=== PATIENT | female | born 1950 | race Caucasian/White ===

== ENCOUNTER 2020-03-27 13:41 | Outpatient (CLI) | payer MEDICARE, SELFPAY ==
--- NOTE | 2020-03-31 13:03 | WPDPFTINT ---
PFT Interpretation PFT Interpretation: This PFT met all criteria for ATS standards and reproducibility FEV/FVC post bronchodilator 50% FEV1 73% or 1.33 liters FVC 103% or 2.63 liters Unfortunately bronchodilator challenge was not given TLC 133% or 5.62 liters RV 180% RV/TLC 53% DLCO 45% when adjusted for alveolar volume but not adjusted for hemoglobin Flow volume loops showed Impression: This PFT is limited due to lack to bronchodilator challenge given. There is moderate airflow obstruction with hyper inflation and air trapping as well as moderately reduced diffusion capacity. This pattern can be seen in COPD but concomitant Asthma can not be ruled out. Clinical correlation is advised.
== END 2020-03-27 13:42 | disposition home or self-care (01) ==
LOC: ANHPFT 13:45
PROVIDERS: PCP Internal Medicine; Visit Provider Internal Medicine
DX: J44.9 Chronic obstructive pulmonary disease, unspecified (principal); R94.2 Abnormal results of pulmonary function studies
CPT/HCPCS: 94375; 94726; 94729

== ENCOUNTER 2021-06-24 18:05 | Inpatient (IN) | payer MEDICARE, SELFPAY ==
--- NOTE | ~2021-06-24 | CT_ITS ---
EXAMINATION:CT chest high resolution wo mi DATE: 06/25/2021 12:00 INDICATION: Pulmonary nodule. TECHNIQUE: Computed tomography (CT) of the chest was performed without intravenous contrast. Automate d exposure control and iterative reconstruction technique were employed. The dose-length product (DLP ) was 149.06 mGy-cm. COMPARISON: Chest single view 06/24/2021 FINDINGS: There is severe emphysema. There is mild scarring at the lung apices. There are scattered a reas of mucous plugging in the lungs with a lower lung predominance. There is a 5 mm nodule in right upper lobe, likely benign. A calcified right lung nodule and calcified right hilar and mediastinal ly mph nodes are consistent with old granulomatous disease. There is mild atelectasis bilaterally. No pl eural effusion. The heart size is normal. No pericardial effusion. Calcifications in the spleen are c onsistent with old granulomatous disease. There is severe cervical spondylosis and mild thoracic spon dylosis. IMPRESSION: 1. No specific evidence of malignancy. 2. Severe emphysema. Reviewed, dictated and finalized at location A. THERAPIST
--- NOTE | ~2021-06-24 | NM_ITS ---
EXAMINATION: NM pulmonary perfusion DATE: 06/25/2021 14:07 INDICATION: Respiratory abnormality with cough and elevated d-dimer. TECHNIQUE: 5.5 mCi Tc-99m MAA by intravenous route. Scintigraphic images of the chest were obtained. COMPARISON: Chest CT dated 06/25/2021 FINDINGS: Moderate-sized wedge-shaped perfusion defects are seen in the right middle lobe and in the anterior b asilar segment of the right lower lobe. There is corresponding severe bullous emphysema in the right middle lobe. There are perfusion defects corresponding to regions of severe emphysema at the anteroap ical bilateral upper lobes. IMPRESSION: 1. Intermediate probability for pulmonary embolism. Reviewed, dictated and finalized at location B. RIAL LISTER
--- NOTE | ~2021-06-24 | US_ITS ---
EXAMINATION: US venous doppler [facility] DATE: 06/25/2021 12:13 INDICATION: Respiratory abnormality with COPD, cough and pulmonary infiltrates. TECHNIQUE: Grayscale ultrasound images without and with compression and Doppler ultrasound images of the bilateral lower extremity veins were obtained. COMPARISON: None. FINDINGS: The visualized portions of right common femoral vein, profunda (deep) femoral vein, femoral vein, pop liteal vein, posterior tibial veins, peroneal veins, gastrocnemius vein and greater saphenous vein ou tflow are patent. The visualized portions of left common femoral vein, profunda femoral vein, femoral vein, popliteal v ein, posterior tibial veins, peroneal veins, gastrocnemius vein and greater saphenous vein outflow ar e patent. IMPRESSION: 1. No deep venous thrombosis in either lower limb. Reviewed, dictated and finalized at location B. TRUCTION FOREMAN
--- NOTE | ~2021-06-24 | XR_ITS ---
XR chest 1V portable DATE: 06/24/2021 23:53 INDICATION: Cough. History of COPD. Smoker. TECHNIQUE: Portable upright AP chest on 06/24/2021 at 2349 hours COMPARISON: None FINDINGS: Normal heart size. Mild aortic arch calcification. No hilar or mediastinal enlargement is e vident. Bilateral hyperinflation, consistent with COPD. Approximately 11 mm ill-defined opacity overlying right mid and lower lung; lung mass is not excluded . Mild infiltrate or atelectasis is suggested in the right lower lung. The lungs otherwise appear clear . No pleural effusion or pulmonary vascular congestion or pneumothorax. Diffuse osteopenia. IMPRESSION: 11 mm nodular density overlying right mid to lower lung and mild right lower lung infiltr ate and/atelectasis. CT thorax with IV contrast material is recommended COPD Osteopenia Reviewed, dictated and finalized at location A. S EMBOSSER IMPRESSION: 11 mm nodular density overlying right mid to lower lung and mild ri ght lower lung infiltrate and/atelectasis. CT thorax with IV contrast material is recommended COPD Osteopenia
[2021-06-24 18:13] VITALS: BP 129/68; PULSE 109; RESP 28; TEMP 36.9; O2SAT 93
[2021-06-24 18:16] VITALS: O2SAT 98
[2021-06-24 22:28] VITALS: BP 123/48; PULSE 86; O2SAT 97
--- NOTE | 2021-06-24 23:26 | ECG_ITS ---
Measurements Intervals [place] Rate: 84 P: 80 CO: 148 QRS: 14 QRSD: 82 T: 84 QT: 360 QTc: 427 Interpretive Statements SINUS RHYTHM DELAYED PRECORDIAL R/S TRANSITION BORDERLINE T WAVE ABNORMALITY- ANTEROLAT/HIGH LAT LEADS BASELINE ARTIFACT- I, II, III, AVR, AVL, AVF, V3-V6 BORDERLINE ECG Electronically Signed On 06-25-2021 6:26:13 EXPLOSIVE OPERATOR SUPERVISOR by Capo Jimenez D.O.
--- NOTE | 2021-06-24 23:30 | ED.SOB ---
HPI - SOB/Dyspnea General Chief Complaint: Shortness of Breath/Dyspnea Stated Complaint: SOB X WEEKS,HX COPD Time Seen by Provider: 06/24/21 23:16 Source: patient Mode of arrival: ambulatory Limitations: no limitations History of Present Illness HPI Narrative: Patient is a 70-year-old female complaining of shortness of breath accompanied by chest congestion and cough, productive, yellowish sputum, since April but worse this past week. Patient states that she has a history of COPD, continues to smoke. Patient denies any chest pain, abdominal pain, nausea, vomiting, diaphoresis, fever or chills. Related Data Allergies Allergy/AdvReac Type Severity Reaction Status Date / Time erythromycin base AdvReac Swelling Verified 06/24/21 23:41 of Lip/Tongue/Throat Review of Systems Review of Systems: All systems reviewed & are unremarkable except as noted in HPI and below Constitutional: Constitutional: Denies body ache(s), Denies chills, Denies excessive sweating, Denies fatigue, Denies fever(s), Denies headache(s), Denies lethargy, Denies malaise, Denies weakness and Denies weight loss Eyes: Eyes: Denies blurry vision, Denies change in vision and Denies loss of vision ENT: Denies dizziness, Denies ear discharge, Denies headache(s), Denies lip swelling, Denies epistaxis, Denies nasal congestion, Denies neck pain, Denies throat swelling and Denies tongue swelling Cardiovascular: Cardiovascular: Denies chest pain, Denies chest pain at rest, Denies chest pain with activity, Denies diaphoresis, Denies rapid heart rate, Denies edema, Denies irregular heart rhythm, Denies lightheadedness, Denies palpitations, Denies dyspnea and Denies dyspnea on exertion Gastrointestinal: Gastrointestinal: Denies abdominal pain, Denies melena, Denies hematochezia, Denies diarrhea, Denies nausea, Denies vomiting and Denies hematemesis Musculoskeletal: Musculoskeletal: Denies abnormal gait, Denies deformity, Denies joint swelling, Denies limited range of motion, Denies neck pain and Denies numbness Neurologic: Denies Abnormal speech present, Denies abnormal gait, Denies confusion, Denies dizziness, Denies headache(s), Denies focal weakness, Denies loss of vision, Denies numbness, Denies Other visual disturbances, Denies Sensory deficit (Neuro) and Denies weakness Psychiatric: Psychiatric: Denies confusion, Denies depression, Denies auditory hallucinations, Denies homicidal ideation and Denies suicidal ideation Endocrine: Endocrine: Denies cold intolerance, Denies excessive sweating, Denies fatigue, Denies heat intolerance and Denies palpitations Hematologic/Lymphatic: Hematologic/Lymphatic: Denies easy bleeding and Denies easy bruising Allergic/Immunologic: Allergic/Immunologic: Denies lip swelling, Denies throat swelling and Denies tongue swelling PMFSH Comments Past medical history: COPD, hypertension Family history: Hypertension Social history: Positive for smoker, no EtOH or drug use Exam Const: General: cooperative, comfortable, well developed, alert and awake; No confusion Nutritional Appearance: thin Orientation/consciousness: oriented to person, oriented to place, oriented to time, patient oriented x3 and No confusion Limitations: no limitations Other: Mild distress HENMT: Head: normal to inspection, normocephalic and atraumatic Ears: hearing grossly normal bilaterally, TM normal on the right and TM normal on the left General nose exam: Normal external nose present, Normal nares present and No nasal discharge present Face and sinus: normal facial exam Mouth: Yes Normal oral and palatal mucosa present, Yes lip normal, Yes tongue normal and Yes oropharynx normal Throat: posterior oropharynx normal, tonsils normal and uvula midline Eyes: General: appearance normal, both eyes and all related structures Pupils: Equal, round and reactive pupils present EOM: EOMs intact bilaterally Neck: Neck: normal visual inspection, full ROM, no lymphaden
[2021-06-24] MEDS: IPRATROPIUM BR 0.02% INH SOLN 0.5 MG/2.5 ML VIAL INHALATION (23:41)
[2021-06-24] MEDS: ALBUTEROL SULFATE NEB 2.5 MG/0.5 ML INH 5 MG INHALATION (23:41)
[2021-06-24] MEDS: methylPREDNISolone SOD SUCC 125 MG VIAL IV PUSH (23:41)
[2021-06-24 23:44] VITALS: BP 90/78; PULSE 89; RESP 16; O2SAT 100; O2SAT 98
[2021-06-24 23:52] VITALS: PULSE 97; RESP 18
[2021-06-24 23:56] LABS: Alveolar/Arterial O2 Gradient 92.4 mmHg; Base Excess ABG -0.2 mEq/l (+/-2.0); Carboxyhemoglobin 1.4 % THb (0-2.0); Fractional Inspired Oxygen 32 %; HCO3 ABG 24.1 mEq/l (22.0-26.0); Methemoglobin ABG 0.1 %THb (0-1.5); Oxygen Content ABG 20.3 %vol (16.0-22.0); Oxygen Saturation ABG 97.1 % (95.0-100.0); Oxyhemoglobin 95.4 % THb (90.0-100.0); PCO2 ABG 38.5 mmHg (35.0-45.0); PO2 ABG 90.7 mmHg (80.0-100.0); PO2 FiO2 Ratio Arterial Blood 2.83 %; Reduced Hemoglobin 3.1 %THb (0-5.0); Total Hemoglobin 15.1 g/dL (12.0-18.0); pH ABG 7.414 (7.350-7.450)
[2021-06-24 23:59] LABS: Device NASAL CANNULA; Modified Allen's Test Pass; Site Drawn LEFT RADIAL
[2021-06-25] VITALS (12 sets, daily range): BP systolic 134–178; BP diastolic 57–99; PULSE 77–102; RESP 16–26; TEMP 36–37.1; O2SAT 94–98; BMI 23.6
[2021-06-25 00:50] LABS: Mean Corpuscular HGB Conc 32.6 g/dl (32-36); Mean Corpuscular Hemoglobin 29.6 pg (26-34); Mean Corpuscular Volume 90.7 fl (80-100); Mean Platelet Volume 10.5 fl (7.4-10.4); Platelet Count Result 296 k/mm3 (150-375); Red Blood Count 5.07 M/mm3 (4.2-5.4); Red Cell Distribution Width 13.6 % (11.5-14.5); White Blood Count 24.4 K/mm3 (4.5-10.0)
[2021-06-25 01:01] LABS: Anion Gap 11 mmol/L (8-16); Blood Urea Nitrogen 12 mg/dL (7-17); Calcium 9.8 mg/dL (8.4-10.2); Carbon Dioxide 26 mmol/L (22-30); Chloride 100 mmol/L (98-107); Estimated CRCL calculation 40 ml/min; Estimated Glomerular Filt Rate > 60; Glucose 210 mg/dL (65-110); Potassium 4.6 mmol/L (3.4-5.0); Sodium 137 mmol/L (137-145)
[2021-06-25 01:13] LABS: NT Pro B Type Natriuretic Pept 485 pg/mL (5-100); Troponin I < 0.012 ng/mL (0.000-0.034)
[2021-06-25 01:46] LABS: Band Neutrophils Percent 7 % (0-6); Lymphocytes Absolute Manual 0.97 K/mm3 (1.1-4.5); Monocytes Absolute Manual 0.24 K/mm3 (0.1-0.90); Monocytes Percent Manual 1 % (3-9); Neutrophils Absolute Manual 23.18 K/mm3 (1.7-7.2); Neutrophils Percent Manual 88 % (46-73); Platelet Estimate Adequate (Adequate); Total Cells Counted 100
--- NOTE | 2021-06-25 02:19 | PM.IMHP ---
H&P: HPI History of Present Illness Date/Time: 06/25/21 02:19 Chief Complaint: Shortness of breath Narrative: This is a 70-year-old female with past medical history significant for COPD/emphysema. Patient presents to the emergency room with complaints of shortness of breath persistent cough productive of greenish sputum, chills ,fevers, poor appetite, having to add pillows at nighttime to be able to sleep due to shortness of breath when laying flat and bouts of cough. Has been using her inhaler more often than usual and has been taking Tylenol for body aches and pains and fevers, night sweats. Although patient states that she is current with her shots and has not been feeling well for the last couple of months. Patient denies any nausea, any vomiting, any abdominal pain ,any diarrhea, any leg swelling, any calf pain. Preliminary workup was significant for chest X rate with infiltrates, a COVID rapid test was negative. Patient was placed on 3 L of supplemental oxygen by nasal cannula in emergency room after her pulse ox was 87% on room air. Patient is being admitted for further evaluation, management and treatment. Review of Systems Review of Systems: Shortness of breath cough sputum production fever chills rigors poor appetite Constitutional: Constitutional: Reports chills, Reports fatigue, Reports fever(s), Reports lethargy, Reports malaise, Reports night sweats, Reports poor appetite and Reports weakness Eyes: Eyes: Denies change in vision ENT: Denies dysphagia, Reports nasal congestion, Reports nasal discharge, Reports nasal obstruction and Denies odynophagia Cardiovascular: Cardiovascular: Denies pedal edema, Denies edema, Denies irregular heart rhythm, Denies leg edema, Denies lightheadedness, Denies radiating jaw, neck or arm pain, Denies palpitations, Denies dyspnea, Denies dyspnea on exertion and Denies orthopnea Respiratory: Respiratory: Reports change in phlegm color, Reports cough, Reports excessive phlegm production and Reports dyspnea Gastrointestinal: Gastrointestinal: Denies abdominal pain, Denies dyspepsia, Denies heartburn, Denies diarrhea, Denies nausea and Denies vomiting Genitourinary: Genitourinary: Denies dysuria Musculoskeletal: Musculoskeletal: Denies arthralgias and Denies joint swelling Integumentary/Breasts: Skin/Breast: Denies rash Neurologic: Denies focal weakness and Denies Sensory deficit (Neuro) Psychiatric: Psychiatric: Reports no additional psychiatric complaints and Reports as per HPI Endocrine: Endocrine: Denies cold intolerance, Denies heat intolerance, Denies polydipsia and Denies palpitations Hematologic/Lymphatic: Hematologic/Lymphatic: Reports no additional hematologic/lymphatic complaints and Reports as per HPI Allergic/Immunologic: Allergic/Immunologic: Reports no additional allergic/immunologic complaints and Reports as per HPI Meds Home Medications and Allergies Allergies Allergy/AdvReac Type Severity Reaction Status Date / Time erythromycin base AdvReac Swelling Verified 06/24/21 23:41 of Lip/Tongue/Throat Vital Signs Vital Signs - 24 hr 06/24/21 18:13 06/24/21 18:16 06/24/21 22:28 Temperature 98.5 F Pulse Rate 109 H 86 Respiratory Rate 28 H Blood Pressure 129/68 123/48 L Pulse Oximetry 93 98 97 06/24/21 23:44 06/24/21 23:52 06/25/21 00:03 Temperature Pulse Rate 89 97 89 Respiratory Rate 16 18 Blood Pressure 90/78 L Pulse Oximetry 100 Exam Narrative: Patient is laying in gurney Const: General: cooperative, comfortable, no acute distress, well developed, alert, awake, acute distress mild and ill appearing acutely Nutritional Appearance: thin Orientation/consciousness: patient oriented x3 HENMT: Head: normal to inspection, normocephalic and atraumatic Ears: hearing grossly normal bilaterally General nose exam: Normal external nose present Face and sinus: normal facial exam Eyes: General: appearance normal, both eyes and al
[2021-06-25] MEDS: DOXYCYCLINE HYCLATE 100 MG TABLET PO (02:24)
[2021-06-25] MEDS: SODIUM CHLORIDE 0.9% IV 1,000 ML 125 ML IV CONT (02:28)
[2021-06-25 03:29] LABS: EDCOVIDSCREEN Negative (Negative)
--- NOTE | 2021-06-25 05:55 | ADMGEN ---
This patient, Diane Quesada, was admitted to Medical Room 251-01. Patient/family oriented to hospital policies and general routines including ID bracelet, bed and alarms, visiting hours, pain management, procedures, bathroom and other care routines, personal items, smoking policy, room service/diet, and visiting hours. Information on how to activate the Rapid Response Team has been discussed. Patient/Family are encouraged to report perceived risks to care and to ask questions if they do not understand what they are told or what they should do.
[2021-06-25] MEDS: methylPREDNISolone SOD SUCC 40 MG VIAL IV PUSH (06:31)
[2021-06-25] MEDS: IPRATROPIUM BR 0.02% INH SOLN 0.5 MG/2.5 ML VIAL INHALATION ×2 (09:04→15:56)
[2021-06-25] MEDS: ALBUTEROL SULFATE NEB 2.5 MG/0.5 ML INH 5 MG INHALATION (09:04)
[2021-06-25 10:01] LABS: INR 1.1; Prothrombin Time 13.9 Seconds (11.1-14.7)
[2021-06-25 10:01] LABS: Influenza Control Positive
[2021-06-25 10:04] LABS: D Dimer 1.63 ug/mL (<0.48)
[2021-06-25] MEDS: SODIUM CHLORIDE 0.9% IV 1,000 ML 70 ML IV CONT (10:49)
[2021-06-25] MEDS: ENALAPRIL MALEATE 10 MG TABLET 20 MG PO (10:49)
--- NOTE | 2021-06-25 12:33 | PM.CNPUL ---
Assessment and Plan Assessment and plan (1) Acute exacerbation of chronic obstructive airways disease: Code(s): J44.1 - Chronic obstructive pulmonary disease with (acute) exacerbation Status: Acute Assessment and Plan: Patient with a history of tobacco use, obstructive abnormality on her PFTs and severe panlobular emphysema on her CT scan all consistent with COPD. Currently patient has shortness of breath, change in her cough and phlegm production and hypoxia consistent with a COPD exacerbation. Her CT scan shows no evidence of pneumonia. She has a positive D-dimer and we will obtain lower extremity Dopplers and a perfusion scan. She did tell me she lost her taste and smell approximately 2 weeks ago and this has improved. She has COVID rapid antigen negative and I will send an RT PCR study. Her influenza swab is negative. She had an ABG of 7.41/39/91 on 3 L nasal cannula and a serum bicarbonate of 26 so there is no evidence of chronic hypercarbic respiratory failure. At this time I will change her Solu-Medrol to 20 mg IV q.6 hours, continue albuterol and ipratropium nebulizers Q 4 standing. Agree with continuation of ceftriaxone and Levaquin while we are waiting her blood cultures to return. Continue supplemental oxygen to maintain saturations 90-94%. Discussed with Delaney Martinez and will follow with you. History of Present Illness History of Present Illness Consult date: 06/25/21 Reason for consult: COPD Chief complaint: Pneumonia, COPD Exacerbation Narrative: 06/25/2021: This is a new pulmonary consult for COPD, pneumonia and lung nodule. 70-year-old woman with a history of COPD, quit smoking 10 days ago, peripheral arterial disease or DVT per her report requiring a catheter procedure 5 years ago prevents to the hospital on 06/24/2021 with worsening shortness of breath. Patient tells me that her shortness of breath initially started in April of 2021 and she continued to get worse and was admitted to [facility] about 2 weeks ago. Patient felt she was not adequately treated and signed out AMA. She was given prednisone and took the prednisone and did have some benefit. Recently the patient states her symptoms have been getting worse since she left that hospital over the last few weeks with shortness of breath, nighttime fevers, chills, worsening cough and phlegm that has changed to a clear -yellow color. Patient presented to the emergency room and Had a white blood cell count of 24.4K, she had a COVID antigen rapid test that was negative, she has had an influenza swab that is negative. She was empirically started on Doxycycline and then switched to ceftriaxone and Levaquin for possible community-acquired pneumonia. She was placed on Solu-Medrol 40 mg IV Q 8, albuterol and ipratropium nebulizers q.6 For COPD exacerbation. she had a high-resolution CT scan that shows severe panlobular emphysema, 5 mm nodule right upper lobe likely benign, and no evidence of focal pneumonia, effusions or consolidations. Patient's D-dimer is positive and a perfusion scan has been ordered. Patient started smoking cigarettes at age 22 and quit 10 days ago. She smoked 1 pack per day for 48 pack years. Patient denies vaping, illicit drug use, sandblasting, welding, asbestos were, professional painting or steel rolling mill operator helper. Patient worked in an office setting. Patient was exposed to secondhand smoke from both parents but is exposed to no secondhand smoke at this time. Patient received Parker 2 COVID vaccines but no booster. Patient had her influenza vaccine last fall. 06/25 The patient tells me she is essentially unchanged since yesterday. Patient is on 2 L nasal cannula saturations 96%. DATA: This is a pulmonary function test with spirometry, plethysmography and diffusing capacity. Findings: Spirometry: there is decreased maximal expiratory airflow at all lung volumes with concave expiratory
--- NOTE | 2021-06-25 13:21 | PM.IMPN ---
Progress Note: A&P Assessment and Plan (1) Sepsis: Code(s): A41.9 - Sepsis, unspecified organism Status: Acute Assessment and Plan: Patient meets criteria for sepsis with tachycardia, tachypnea, hypoxia, leukocytosis with elevated neutrophils and bands, in the setting of bacterial pneumonia versus COVID which we ruled out versus COPD exacerbation Blood cultures were taken and pending Sputum cultures ordered but have not been received IV antibiotics with azithromycin and Rocephin for community-acquired pneumonia #1 Today patient has been afebrile, non tachycardic, normal respiratory rate, but still 96% on 2 L via nasal cannula Continue monitoring vitals. (2) Acute respiratory failure with hypoxemia: Code(s): J96.01 - Acute respiratory failure with hypoxia Status: Acute Assessment and Plan: Patient found to be hypoxic on arrival and requiring 2 L of oxygen at this time. Believe it is in the setting bacterial pneumonia versus COVID versus COPD exacerbation. Continue with IV antibiotics DuoNeb treatments q.6 She was placed on IV Solu-Medrol 40 mg Q8h which pulmonary can decide to discontinue versus slowly taper but she does not currently have any wheezing on examination Ordered Josie valve and incentive spirometer Patient also had an elevated D-dimer so we will order a pulmonary perfusion scan to see if we can rule out acute PE since the patient says she has a history of possible DVT CT scan without contrast was ordered to further evaluate lungs and possible 11 mm nodule that was noted. CT chest showed no specific evidence of malignancy, severe emphysema, and scattered areas of mucous plugging in the lungs with a lower lung predominance. Currently patient is 96% on 2 L via nasal cannula Pulmonology was consulted and appreciate the recommendations Continue monitoring. (3) Community acquired pneumonia: Qualifiers: Laterality: unspecified laterality Qualified Code(s): J18.9 - Pneumonia, unspecified organism Code(s): J18.9 - Pneumonia, unspecified organism Status: Acute Assessment and Plan: Patient we treated for community-acquired pneumonia with IV Rocephin and Levaquin #1 given her allergies to erythromycin antibiotics. Continue monitoring leukocytosis for improvement of infection Continue IV antibiotics Continue monitoring. Appreciate pulmonology is input. (4) COPD (chronic obstructive pulmonary disease): Code(s): J44.9 - Chronic obstructive pulmonary disease, unspecified Status: Acute Assessment and Plan: Patient has a history of COPD and is a smoker. Currently she is not have any wheezing that is auscultated. She has been started on IV Solu-Medrol 40 mg every 8 hours by the emergency room and DuoNeb treatments every 6 hours with albuterol and ipratropium. Appreciate pulmonology is input and recommendations on treatment Continue monitoring. (5) Elevated glucose: Code(s): R73.09 - Other abnormal glucose Status: Acute Assessment and Plan: Glucose was 210 when she came into the emergency room. Will order hemoglobin a 1 C for further evaluation. She is not on any medications for diabetes. (6) Hypertension: Code(s): I10 - Essential (primary) hypertension Status: Acute Assessment and Plan: Blood pressure this morning was 165/99. Will continue the patient's enalapril and make adjustments if needed. Time Spent With Patient Time with patient: 25 - 35 minutes Subjective Date/time seen: 06/25/21 13:21 Interval history: Date of service 06/25/2021: Patient does not report any improvement since being admitted overnight. She con
[2021-06-25] MEDS: ARTIFICIAL TEARS OPHTH SOLN 15 ML BOTTLE 1 DROP EACH EYE ×3 (14:12→21:00)
[2021-06-25] MEDS: ALBUTEROL SULFATE NEB 2.5 MG/0.5 ML INH INHALATION (15:56)
[2021-06-25] MEDS: methylPREDNISolone SOD SUCC 40 MG VIAL 20 MG IV PUSH (17:29)
--- NOTE | 2021-06-25 20:30 | PC.NURSE ---
Pt daughter Rocio called and requested information related to her mother. Explained that I needed to get permission from the pt in order to release any information. Rocio became upset and stated that she was the only daughter and was allowed to have information. I explained that I needed to speak with patient first that I was not giving information with out speaking with patient. I then went to speak with Diane (patient) with [facility] RN and asked if she wished to have information given to her daughter Rocio. Diane stated no that she wanted information and she would give her daughter information. Diane spoke with her daughter and told her that she did not want information released. Rocio then called nurses station and was informed that we could not release information.
[2021-06-25 20:55] LABS: SARS-CoV-2 RNA PCR Negative
[2021-06-25] MEDS: SIMVASTATIN 10 MG TABLET PO (20:59)
[2021-06-25] MEDS: guaiFENesin 600 MG/DEXTROMETHORPHAN 30 MG SR TAB 12 HR 1 TAB PO (21:00)
[2021-06-25] MEDS: ENALAPRIL MALEATE 10 MG TABLET PO (21:00)
[2021-06-25] MEDS: VENLAFAXINE HCL XR 75 MG CAP.ER.24H 150 MG PO (21:00)
[2021-06-25] MEDS: ALPRAZolam (*CRX) 0.25 MG TABLET PO (21:00)
--- NOTE | 2021-06-25 23:07 | PCRCNOTE ---
Window of time for administration has passed. See next scheduled administration.
[2021-06-26] VITALS (9 sets, daily range): BP systolic 131–154; BP diastolic 57–65; PULSE 79–96; RESP 18–22; TEMP 35.8–36.3; O2SAT 90–95
[2021-06-26] MEDS: methylPREDNISolone SOD SUCC 40 MG VIAL 20 MG IV PUSH ×5 (00:25→23:50)
[2021-06-26] MEDS: IPRATROPIUM BR 0.02% INH SOLN 0.5 MG/2.5 ML VIAL INHALATION ×5 (00:55→19:35)
[2021-06-26] MEDS: ALBUTEROL SULFATE NEB 2.5 MG/0.5 ML INH INHALATION ×5 (00:55→19:35)
[2021-06-26 05:42] LABS: Hemoglobin 12.8 g/dL (12.0-15.0); Mean Corpuscular Volume 90.7 fl (80-100); Platelet Count Result 268 k/mm3 (150-375); Red Blood Count 4.41 M/mm3 (4.2-5.4); Red Cell Distribution Width 13.5 % (11.5-14.5); White Blood Count 20.2 K/mm3 (4.5-10.0)
[2021-06-26 06:02] LABS: Anion Gap 9 mmol/L (8-16); Blood Urea Nitrogen 22 mg/dL (7-17); Calcium 8.9 mg/dL (8.4-10.2); Carbon Dioxide 22 mmol/L (22-30); Chloride 106 mmol/L (98-107); Estimated CRCL calculation 40 ml/min; Estimated Glomerular Filt Rate > 60; Glucose 159 mg/dL (65-110); Potassium 4.2 mmol/L (3.4-5.0); Sodium 137 mmol/L (137-145)
[2021-06-26 07:23] LABS: Band Neutrophils Percent 5 % (0-6); Monocytes Percent Manual 3 % (3-9); Neutrophils Absolute Manual 19.39 K/mm3 (1.7-7.2); Neutrophils Percent Manual 91 % (46-73); Platelet Estimate Adequate (Adequate); Total Cells Counted 100
--- NOTE | 2021-06-26 07:26 | PCRCNOTE ---
Window of time for administration has passed. See next scheduled administration.
[2021-06-26] MEDS: guaiFENesin 600 MG/DEXTROMETHORPHAN 30 MG SR TAB 12 HR 1 TAB PO ×2 (08:54→21:20)
[2021-06-26] MEDS: ENALAPRIL MALEATE 10 MG TABLET 20 MG PO (08:55)
[2021-06-26] MEDS: ARTIFICIAL TEARS OPHTH SOLN 15 ML BOTTLE 1 DROP EACH EYE ×4 (08:56→21:18)
[2021-06-26 09:22] LABS: Hemoglobin A1C 6.6 % (<5.7)
--- NOTE | 2021-06-26 10:40 | PM.PNPUL ---
Progress Note: A&P Assessment and Plan (1) Acute exacerbation of chronic obstructive airways disease: Code(s): J44.1 - Chronic obstructive pulmonary disease with (acute) exacerbation Status: Acute Assessment and Plan: 06/25 Patient with a history of tobacco use, obstructive abnormality on her PFTs and severe panlobular emphysema on her CT scan all consistent with COPD. Currently patient has shortness of breath, change in her cough and phlegm production and hypoxia consistent with a COPD exacerbation. Her CT scan shows no evidence of pneumonia. She has a positive D-dimer and we will obtain lower extremity Dopplers and a perfusion scan. She did tell me she lost her taste and smell approximately 2 weeks ago and this has improved. She has COVID rapid antigen negative and I will send an RT PCR study. Her influenza swab is negative. She had an ABG of 7.41/39/91 on 3 L nasal cannula and a serum bicarbonate of 26 so there is no evidence of chronic hypercarbic respiratory failure. At this time I will change her Solu-Medrol to 20 mg IV q.6 hours, continue albuterol and ipratropium nebulizers Q 4 standing. Agree with continuation of ceftriaxone and Levaquin while we are waiting her blood cultures to return. Continue supplemental oxygen to maintain saturations 90-94%. 06/26 the patient tells me that she is feeling about the same since admission. She continues with a cough. Patient did state that she slept better. Patient is currently on room air with saturations 95%. White blood cell count decreased to 20.2 she continues on Solu-Medrol 20 q.6, albuterol ipratropium nebulizers q.4 hours, ceftriaxone and Levaquin. Once patient has clinically improved with change to prednisone 40 mg p.o. q.day. There is no evidence of pneumonia on her CT scan and blood cultures are negative. Would discontinue ceftriaxone if cultures remain negative at 48 hours and continue Levaquin for a total of 7 days. This can be changed to p.o.. I have a low clinical suspicion for pulmonary embolism and patient had an intermediate perfusion scan with negative lower extremity Dopplers, will not treat for PE at this time. COVID RT PCR study is negative. Influenza swab is negative. CT scan of the chest demonstrated severe panlobular emphysema and 5 mm nodule in the right upper lobe. No concern for malignancy currently. Patient should have a yearly low-dose CT scan to screen for cancer. Discussed with Delaney Martinez Inpatient Pulmonary Services will resume on 06/29/2021. Call with questions Subjective Date/time seen: 06/26/21 10:40 Interval history: 06/25/2021: This is a new pulmonary consult for COPD, pneumonia and lung nodule. 70-year-old woman with a history of COPD, quit smoking 10 days ago, peripheral arterial disease or DVT per her report requiring a catheter procedure 5 years ago prevents to the hospital on 06/24/2021 with worsening shortness of breath. Patient tells me that her shortness of breath initially started in April of 2021 and she continued to get worse and was admitted to [facility] about 2 weeks ago. Patient felt she was not adequately treated and signed out AMA. She was given prednisone and took the prednisone and did have some benefit. Recently the patient states her symptoms have been getting worse since she left that hospital over the last few weeks with shortness of breath, nighttime fevers, chills, worsening cough and phlegm that has changed to a clear -yellow color. Patient presented to the emergency room and Had a white blood cell count of 24.4K, she had a COVID antigen rapid test that was negative, she has had an influenza swab that is negative. She was empirically started on Doxycycline and then switched to ceftriaxone and Levaquin for possible community-acquired pneumonia. She was placed on Solu-Medrol 40 mg IV Q 8, albuterol and ipratropium nebulizers q.6 For COPD exacerbation. she had a high-
--- NOTE | 2021-06-26 12:58 | PM.IMPN ---
Progress Note: A&P Assessment and Plan (1) Sepsis: Code(s): A41.9 - Sepsis, unspecified organism Status: Acute Assessment and Plan: Patient meets criteria for sepsis with tachycardia, tachypnea, hypoxia, leukocytosis with elevated neutrophils and bands, in the setting of bacterial pneumonia versus COVID which we ruled out versus COPD exacerbation Blood cultures were taken and negative to date Sputum cultures ordered but have not been received IV antibiotics with azithromycin and Rocephin for community-acquired pneumonia #2 Today patient has been afebrile, non tachycardic, normal respiratory rate, but still 95% on room air. Continue monitoring vitals. (2) Acute respiratory failure with hypoxemia: Code(s): J96.01 - Acute respiratory failure with hypoxia Status: Acute Assessment and Plan: Patient found to be hypoxic on arrival and requiring 2 L of oxygen at this time. Believe it is in the setting bacterial pneumonia versus COVID versus COPD exacerbation. Continue with IV antibiotics DuoNeb treatments q.6 Pulm switched IV Solu-Medrol 20 mg Q6hrs for the next 24 hours, if doing well tomorrow will consider switching to PO Prednisone 40 mg x 5 days and adding Budesonide 500 mg breathing treatments Q12hrs. Ordered Josie valve and incentive spirometer Elevated D-dimer with a pulmonary perfusion scan showing indeterminate probability. Wells Score is 1.5 which is low probabilty, No DVT with Venous Dopplers and discussed with Tv Production Assistant and PE has been ruled out. to see if we can rule out acute PE since the patient says she has a history of possible DVT CT scan without contrast was ordered to further evaluate lungs and possible 11 mm nodule that was noted. CT chest showed no specific evidence of malignancy, severe emphysema, and scattered areas of mucous plugging in the lungs with a lower lung predominance. Currently patient is 95% room air Pulmonology was consulted and appreciate the recommendations Continue monitoring. (3) Community acquired pneumonia: Qualifiers: Laterality: unspecified laterality Qualified Code(s): J18.9 - Pneumonia, unspecified organism Code(s): J18.9 - Pneumonia, unspecified organism Status: Acute Assessment and Plan: Patient we treated for community-acquired pneumonia with IV Rocephin and Levaquin #2 given her allergies to erythromycin antibiotics. Continue monitoring leukocytosis for improvement of infection Continue IV antibiotics Continue monitoring. Appreciate pulmonology is input. (4) COPD (chronic obstructive pulmonary disease): Code(s): J44.9 - Chronic obstructive pulmonary disease, unspecified Status: Acute Assessment and Plan: Patient has a history of COPD and is a smoker. Currently she is not have any wheezing that is auscultated. Switched to IV Solu-Medrol 20 mg every 6 hours by Pulm and DuoNeb treatments every 6 hours with albuterol and ipratropium. Appreciate pulmonology is input and recommendations on treatment Continue monitoring. (5) Elevated glucose: Code(s): R73.09 - Other abnormal glucose Status: Acute Assessment and Plan: Glucose was 210 when she came into the emergency room. Hemoglobin a 1 C is elevated at 6.6%. She is not on any medications for diabetes. Will start monitoring glucose ACHS, SSI, hypoglycemic protocoll in place. (6) Hypertension: Code(s): I10 - Essential (primary) hypertension Status: Acute Assessment and Plan: Blood pressure this morning was 131/57. Will continue the patient's enalapril and make adjustments if needed. Time Spent With Patient Time with
[2021-06-26 17:23] LABS: Glucose Point of Care 169 mg/dl (65-105)
[2021-06-26] MEDS: ENALAPRIL MALEATE 10 MG TABLET PO (21:19)
[2021-06-26] MEDS: VENLAFAXINE HCL XR 75 MG CAP.ER.24H 150 MG PO (21:20)
[2021-06-26] MEDS: SIMVASTATIN 10 MG TABLET PO (21:20)
[2021-06-26 21:34] LABS: Glucose Point of Care 206 mg/dl (65-105)
[2021-06-27] VITALS (12 sets, daily range): BP systolic 111–147; BP diastolic 60–98; PULSE 73–90; RESP 18–22; TEMP 35.9–36.4; O2SAT 93–96
[2021-06-27] MEDS: IPRATROPIUM BR 0.02% INH SOLN 0.5 MG/2.5 ML VIAL INHALATION ×4 (00:33→21:11)
[2021-06-27] MEDS: ALBUTEROL SULFATE NEB 2.5 MG/0.5 ML INH INHALATION ×4 (00:33→21:11)
[2021-06-27] MEDS: methylPREDNISolone SOD SUCC 40 MG VIAL 20 MG IV PUSH ×2 (05:43→11:31)
[2021-06-27 05:57] LABS: Basophils Percent Auto 0.2 % (0.2-1.2); Hematocrit 41.8 % (37.0-47.0); Hemoglobin 13.5 g/dL (12.0-15.0); Immature Granulocyte Absolute 0.25 K/mm3 (0.00-0.031); Immature Granulocyte Percent A 1.4 % (0-0.5); Lymphocytes Absolute Auto 1.65 K/mm3 (0.9-3.2); Lymphocytes Percent Auto 9.4 % (18.3-44.2); Mean Corpuscular HGB Conc 32.3 g/dl (32-36); Mean Corpuscular Hemoglobin 29.2 pg (26-34); Mean Corpuscular Volume 90.3 fl (80-100); Mean Platelet Volume 10.9 fl (7.4-10.4); Monocytes Absolute Auto 0.6 K/mm3 (0.1-0.6); Monocytes Percent Auto 3.4 % (2.6-8.5); Neutrophils Percent Auto 85.6 % (45.5-73.1); Platelet Count Result 276 k/mm3 (150-375); Red Blood Count 4.63 M/mm3 (4.2-5.4); Red Cell Distribution Width 13.5 % (11.5-14.5); White Blood Count 17.5 K/mm3 (4.5-10.0)
[2021-06-27 06:17] LABS: Anion Gap 9 mmol/L (8-16); Blood Urea Nitrogen 23 mg/dL (7-17); Carbon Dioxide 27 mmol/L (22-30); Chloride 102 mmol/L (98-107); Estimated CRCL calculation 40 ml/min; Estimated Glomerular Filt Rate > 60; Glucose 147 mg/dL (65-110); Potassium 4.3 mmol/L (3.4-5.0); Sodium 138 mmol/L (137-145)
[2021-06-27 07:59] LABS: Glucose Point of Care 134 mg/dl (65-105)
[2021-06-27] MEDS: ARTIFICIAL TEARS OPHTH SOLN 15 ML BOTTLE 1 DROP EACH EYE ×2 (08:10→13:08)
[2021-06-27] MEDS: ENALAPRIL MALEATE 10 MG TABLET 20 MG PO (08:11)
[2021-06-27] MEDS: guaiFENesin 600 MG/DEXTROMETHORPHAN 30 MG SR TAB 12 HR 1 TAB PO ×2 (08:11→20:51)
[2021-06-27 11:30] LABS: Glucose Point of Care 87 mg/dl (65-105)
--- NOTE | 2021-06-27 14:53 | P.PNIM_ITS ---
Progress Note: A&P Assessment and Plan (1) Sepsis: Code(s): A41.9 - Sepsis, unspecified organism Status: Acute Assessment and Plan: Patient meets criteria for sepsis with tachycardia, tachypnea, hypoxia, leukoc ytosis with elevated neutrophils and bands, in the setting of bacterial pneumonia versus COVID which we ruled out versus COPD exacerbation * Blood cultures were taken and negative to date * Sputum cultures ordered but have not been received * IV antibiotics with azithromycin and Rocephin for community-acquired pneumonia #3 * Today patient has been afebrile, non tachycardic, normal respiratory rate, but still 95% on room air. Continue monitoring vitals. (2) Acute respiratory failure with hypoxemia: Code(s): J96.01 - Acute respiratory failure with hypoxia Status: Acute Assessment and Plan: Patient found to be hypoxic on arrival and requiring 2 L of oxygen at this time. Believe it is in the setting bacterial pneumonia versus COVID versus COPD exacerbation. * Continue with IV antibiotics * DuoNeb treatments q.6 * Will discontinue IV Solu-Medrol and start PO Prednisone 40 mg x 5 days and adding Budesonide 500 mg breathing treatments Q12hrs. * Ordered Josie valve and incentive spirometer * Elevated D-dimer with a pulmonary perfusion scan showing indeterminate probability. Wells Score is 1.5 which is low probabilty, No DVT with Venous Dopplers and discussed with Ict Sales Assistant and PE has been ruled out. * CT scan without contrast was ordered to further evaluate lungs and possible 11 mm nodule that was noted. CT chest showed no specific evidence of malignancy, severe emphysema, and scattered areas of mucous plugging in the lungs with a lower lung predominance. * Currently patient is 95% room air * Pulmonology was consulted and appreciate the recommendations Continue monitoring. (3) Community acquired pneumonia: Qualifiers: Laterality: unspecified laterality Qualified Code(s): J18.9 - Pneumonia, unspecified organism Code(s): J18.9 - Pneumonia, unspecified organism Status: Acute Assessment and Plan: Patient we treated for community-acquired pneumonia with IV Rocephin and Levaquin #3 given her allergies to erythromycin antibiotics. * Continue monitoring leukocytosis for improvement of infection * Continue IV antibiotics Continue monitoring. Appreciate pulmonology is input. (4) COPD (chronic obstructive pulmonary disease): Code(s): J44.9 - Chronic obstructive pulmonary disease, unspecified Status: Acute Assessment and Plan: Patient has a history of COPD and is a smoker. * Currently she is not have any wheezing that is auscultated. * Continue DuoNeb treatments every 6 hours with albuterol and ipratropium. * Switch Solu-Medrol to p.o. prednisone and started budesonide q.12 * Appreciate pulmonology is input and recommendations on treatment Continue monitoring. (5) Elevated glucose: Code(s): R73.09 - Other abnormal glucose Status: Acute Assessment and Plan: Glucose was 210 when she came into the emergency room. Hemoglobin a 1 C is elevated at 6.6%. She is not on any medications for diabetes. Will start monitoring glucose ACHS, SSI, hypoglycemic protocoll in place. (6) Hypertension: Code(s): I10 - Essential (primary) hypertension Status: Acute
--- NOTE | 2021-06-27 14:53 | PM.IMPN ---
Progress Note: A&P Assessment and Plan (1) Sepsis: Code(s): A41.9 - Sepsis, unspecified organism Status: Acute Assessment and Plan: Patient meets criteria for sepsis with tachycardia, tachypnea, hypoxia, leukocytosis with elevated neutrophils and bands, in the setting of bacterial pneumonia versus COVID which we ruled out versus COPD exacerbation Blood cultures were taken and negative to date Sputum cultures ordered but have not been received IV antibiotics with azithromycin and Rocephin for community-acquired pneumonia #3 Today patient has been afebrile, non tachycardic, normal respiratory rate, but still 95% on room air. Continue monitoring vitals. (2) Acute respiratory failure with hypoxemia: Code(s): J96.01 - Acute respiratory failure with hypoxia Status: Acute Assessment and Plan: Patient found to be hypoxic on arrival and requiring 2 L of oxygen at this time. Believe it is in the setting bacterial pneumonia versus COVID versus COPD exacerbation. Continue with IV antibiotics DuoNeb treatments q.6 Will discontinue IV Solu-Medrol and start PO Prednisone 40 mg x 5 days and adding Budesonide 500 mg breathing treatments Q12hrs. Ordered Josie valve and incentive spirometer Elevated D-dimer with a pulmonary perfusion scan showing indeterminate probability. Wells Score is 1.5 which is low probabilty, No DVT with Venous Dopplers and discussed with Nut Sheller Machine Operator and PE has been ruled out. CT scan without contrast was ordered to further evaluate lungs and possible 11 mm nodule that was noted. CT chest showed no specific evidence of malignancy, severe emphysema, and scattered areas of mucous plugging in the lungs with a lower lung predominance. Currently patient is 95% room air Pulmonology was consulted and appreciate the recommendations Continue monitoring. (3) Community acquired pneumonia: Qualifiers: Laterality: unspecified laterality Qualified Code(s): J18.9 - Pneumonia, unspecified organism Code(s): J18.9 - Pneumonia, unspecified organism Status: Acute Assessment and Plan: Patient we treated for community-acquired pneumonia with IV Rocephin and Levaquin #3 given her allergies to erythromycin antibiotics. Continue monitoring leukocytosis for improvement of infection Continue IV antibiotics Continue monitoring. Appreciate pulmonology is input. (4) COPD (chronic obstructive pulmonary disease): Code(s): J44.9 - Chronic obstructive pulmonary disease, unspecified Status: Acute Assessment and Plan: Patient has a history of COPD and is a smoker. Currently she is not have any wheezing that is auscultated. Continue DuoNeb treatments every 6 hours with albuterol and ipratropium. Switch Solu-Medrol to p.o. prednisone and started budesonide q.12 Appreciate pulmonology is input and recommendations on treatment Continue monitoring. (5) Elevated glucose: Code(s): R73.09 - Other abnormal glucose Status: Acute Assessment and Plan: Glucose was 210 when she came into the emergency room. Hemoglobin a 1 C is elevated at 6.6%. She is not on any medications for diabetes. Will start monitoring glucose ACHS, SSI, hypoglycemic protocoll in place. (6) Hypertension: Code(s): I10 - Essential (primary) hypertension Status: Acute Assessment and Plan: Blood pressure this morning was 147/60. Will continue the patient's enalapril and make adjustments if needed. Time Spent With Patient Time with patient: 25 - 35 minutes Subjective Date/time seen: 06/27/21 14:53 Interval history: Date of service 06/27/2021:Patient states she is feeli
[2021-06-27 16:37] LABS: Glucose Point of Care 98 mg/dl (65-105)
[2021-06-27] MEDS: ENALAPRIL MALEATE 10 MG TABLET PO (20:51)
[2021-06-27] MEDS: VENLAFAXINE HCL XR 75 MG CAP.ER.24H 150 MG PO (20:51)
[2021-06-27] MEDS: SIMVASTATIN 10 MG TABLET PO (20:51)
[2021-06-27] MEDS: BUDESONIDE RESPULE NEB 0.5 MG/2 ML AMP INHALATION (21:11)
[2021-06-27 21:27] LABS: Glucose Point of Care 97 mg/dl (65-105)
[2021-06-28] VITALS (7 sets, daily range): BP systolic 120–158; BP diastolic 60–78; PULSE 72–93; RESP 16–18; TEMP 36.2–36.7; O2SAT 92–96
[2021-06-28] MEDS: IPRATROPIUM BR 0.02% INH SOLN 0.5 MG/2.5 ML VIAL INHALATION ×4 (01:31→13:08)
[2021-06-28] MEDS: ALBUTEROL SULFATE NEB 2.5 MG/0.5 ML INH INHALATION ×4 (01:31→13:08)
[2021-06-28 05:53] LABS: Basophils Absolute Auto 0.1 K/mm3 (0.0-0.1); Basophils Percent Auto 0.5 % (0.2-1.2); Eosinophils Percent Auto 0.1 % (0-4.4); Hematocrit 42.2 % (37.0-47.0); Hemoglobin 13.8 g/dL (12.0-15.0); Immature Granulocyte Percent A 1.2 % (0-0.5); Lymphocytes Absolute Auto 4.19 K/mm3 (0.9-3.2); Lymphocytes Percent Auto 24.8 % (18.3-44.2); Mean Corpuscular HGB Conc 32.7 g/dl (32-36); Mean Corpuscular Hemoglobin 29.2 pg (26-34); Mean Corpuscular Volume 89.2 fl (80-100); Mean Platelet Volume 10.5 fl (7.4-10.4); Monocytes Absolute Auto 1.5 K/mm3 (0.1-0.6); Monocytes Percent Auto 8.6 % (2.6-8.5); Neutrophils Absolute Auto 10.9 K/mm3 (1.3-6.7); Neutrophils Percent Auto 64.8 % (45.5-73.1); Platelet Count Result 264 k/mm3 (150-375); Red Blood Count 4.73 M/mm3 (4.2-5.4); Red Cell Distribution Width 13.4 % (11.5-14.5); White Blood Count 16.9 K/mm3 (4.5-10.0)
[2021-06-28 06:08] LABS: Anion Gap 8 mmol/L (8-16); Blood Urea Nitrogen 23 mg/dL (7-17); Calcium 8.8 mg/dL (8.4-10.2); Carbon Dioxide 25 mmol/L (22-30); Chloride 103 mmol/L (98-107); Estimated CRCL calculation 40 ml/min; Estimated Glomerular Filt Rate > 60; Glucose 85 mg/dL (65-110); Potassium 3.7 mmol/L (3.4-5.0); Sodium 136 mmol/L (137-145)
[2021-06-28 08:03] LABS: Glucose Point of Care 82 mg/dl (65-105)
[2021-06-28] MEDS: guaiFENesin 600 MG/DEXTROMETHORPHAN 30 MG SR TAB 12 HR 1 TAB PO ×2 (08:16→20:43)
[2021-06-28] MEDS: predniSONE 20 MG TABLET 40 MG PO (08:16)
[2021-06-28] MEDS: ENALAPRIL MALEATE 10 MG TABLET 20 MG PO (08:18)
[2021-06-28] MEDS: BUDESONIDE RESPULE NEB 0.5 MG/2 ML AMP INHALATION (09:30)
--- NOTE | 2021-06-28 11:04 | PM.IMPN ---
Progress Note: A&P Assessment and Plan (1) Sepsis: Code(s): A41.9 - Sepsis, unspecified organism Status: Acute Assessment and Plan: Patient meets criteria for sepsis with tachycardia, tachypnea, hypoxia, leukocytosis with elevated neutrophils and bands, in the setting of bacterial pneumonia versus COVID which we ruled out versus COPD exacerbation Blood cultures were taken and negative to date Sputum cultures ordered but have not been received IV antibiotics with azithromycin and Rocephin for community-acquired pneumonia #3 Today patient has been afebrile, non tachycardic, normal respiratory rate, but still 95% on room air. Continue monitoring vitals. (2) Acute respiratory failure with hypoxemia: Code(s): J96.01 - Acute respiratory failure with hypoxia Status: Acute Assessment and Plan: Patient found to be hypoxic on arrival and requiring 2 L of oxygen at this time. Believe it is in the setting bacterial pneumonia versus COVID versus COPD exacerbation. Continue with IV antibiotics DuoNeb treatments q.6 Will discontinue IV Solu-Medrol and start PO Prednisone 40 mg x 5 days (#1/5) and continue Budesonide 500 mg breathing treatments Q12hrs. Continue Josie valve and incentive spirometer Elevated D-dimer with a pulmonary perfusion scan showing indeterminate probability. Wells Score is 1.5 which is low probabilty, No DVT with Venous Dopplers and discussed with Director E Learning and PE has been ruled out. CT scan without contrast was ordered to further evaluate lungs and possible 11 mm nodule that was noted. CT chest showed no specific evidence of malignancy, severe emphysema, and scattered areas of mucous plugging in the lungs with a lower lung predominance. Currently patient is 96% room air Pulmonology was consulted and appreciate the recommendations Continue monitoring. (3) Community acquired pneumonia: Qualifiers: Laterality: unspecified laterality Qualified Code(s): J18.9 - Pneumonia, unspecified organism Code(s): J18.9 - Pneumonia, unspecified organism Status: Acute Assessment and Plan: Patient we treated for community-acquired pneumonia with IV Rocephin and Levaquin #4 given her allergies to erythromycin antibiotics. Continue monitoring leukocytosis for improvement of infection Continue IV antibiotics Continue monitoring. Appreciate pulmonology is input. (4) COPD (chronic obstructive pulmonary disease): Code(s): J44.9 - Chronic obstructive pulmonary disease, unspecified Status: Acute Assessment and Plan: Patient has a history of COPD and is a smoker. Currently she is having mild wheezing that is auscultated. Continue DuoNeb treatments every 6 hours with albuterol and ipratropium. Switch Solu-Medrol to p.o. prednisone and started budesonide q.12 Appreciate pulmonology is input and recommendations on treatment Continue monitoring. (5) Elevated glucose: Code(s): R73.09 - Other abnormal glucose Status: Acute Assessment and Plan: Glucose was 210 when she came into the emergency room. Hemoglobin a 1 C is elevated at 6.6%. She is not on any medications for diabetes. glucose checks over the last 24 hours have not been greater than 100. She will need to work on diet changes, increase exercise and follow up with PCP in regards to further evaluation and monitoring Will start monitoring glucose ACHS, SSI, hypoglycemic protocoll in place. (6) Hypertension: Code(s): I10 - Essential (primary) hypertension Status: Acute Assessment and Plan: Blood pressure this morning was 134/61 Will continue the patient's enalapril and make adjustments if needed.
[2021-06-28 11:30] LABS: Glucose Point of Care 104 mg/dl (65-105)
[2021-06-28] MEDS: MELATONIN 3 MG TABLET PO (20:43)
[2021-06-28] MEDS: ENALAPRIL MALEATE 10 MG TABLET PO (20:43)
[2021-06-28] MEDS: SIMVASTATIN 10 MG TABLET PO (20:43)
[2021-06-28] MEDS: VENLAFAXINE HCL XR 75 MG CAP.ER.24H 150 MG PO (20:44)
--- NOTE | 2021-06-28 22:48 | PCRCNOTE ---
window of time for administration has passed, see next available administration
[2021-06-29] VITALS (12 sets, daily range): BP systolic 134–146; BP diastolic 49–64; PULSE 63–100; RESP 18; TEMP 36.1–36.3; O2SAT 93–96
[2021-06-29] MEDS: IPRATROPIUM BR 0.02% INH SOLN 0.5 MG/2.5 ML VIAL INHALATION ×4 (00:54→11:23)
[2021-06-29] MEDS: ALBUTEROL SULFATE NEB 2.5 MG/0.5 ML INH INHALATION ×4 (00:54→11:23)
[2021-06-29 06:05] LABS: Basophils Absolute Auto 0.1 K/mm3 (0.0-0.1); Basophils Percent Auto 0.6 % (0.2-1.2); Eosinophils Absolute Auto 0.1 K/mm3 (0-0.3); Eosinophils Percent Auto 0.6 % (0-4.4); Hematocrit 42.7 % (37.0-47.0); Immature Granulocyte Absolute 0.35 K/mm3 (0.00-0.031); Immature Granulocyte Percent A 2.2 % (0-0.5); Lymphocytes Absolute Auto 5.03 K/mm3 (0.9-3.2); Lymphocytes Percent Auto 31.3 % (18.3-44.2); Mean Corpuscular HGB Conc 32.8 g/dl (32-36); Mean Corpuscular Hemoglobin 28.9 pg (26-34); Mean Corpuscular Volume 88.2 fl (80-100); Mean Platelet Volume 10.6 fl (7.4-10.4); Monocytes Absolute Auto 1.2 K/mm3 (0.1-0.6); Monocytes Percent Auto 7.5 % (2.6-8.5); Neutrophils Absolute Auto 9.3 K/mm3 (1.3-6.7); Neutrophils Percent Auto 57.8 % (45.5-73.1); Platelet Count Result 260 k/mm3 (150-375); Red Blood Count 4.84 M/mm3 (4.2-5.4); Red Cell Distribution Width 13.3 % (11.5-14.5); White Blood Count 16.1 K/mm3 (4.5-10.0)
[2021-06-29 06:16] LABS: Anion Gap 4 mmol/L (8-16); Blood Urea Nitrogen 21 mg/dL (7-17); Calcium 8.3 mg/dL (8.4-10.2); Carbon Dioxide 33 mmol/L (22-30); Chloride 102 mmol/L (98-107); Estimated CRCL calculation 40 ml/min; Estimated Glomerular Filt Rate > 60; Glucose 79 mg/dL (65-110); Magnesium 2.4 mg/dL (1.6-2.3); Potassium 3.9 mmol/L (3.4-5.0); Sodium 139 mmol/L (137-145)
[2021-06-29] MEDS: BUDESONIDE RESPULE NEB 0.5 MG/2 ML AMP INHALATION (08:27)
[2021-06-29] MEDS: ENALAPRIL MALEATE 10 MG TABLET 20 MG PO (08:51)
[2021-06-29] MEDS: guaiFENesin 600 MG/DEXTROMETHORPHAN 30 MG SR TAB 12 HR 1 TAB PO (08:51)
[2021-06-29] MEDS: predniSONE 20 MG TABLET 40 MG PO (08:51)
--- NOTE | 2021-06-29 09:31 | PM.PNPUL ---
Progress Note: A&P Assessment and Plan (1) Acute exacerbation of chronic obstructive airways disease: Code(s): J44.1 - Chronic obstructive pulmonary disease with (acute) exacerbation Status: Acute Assessment and Plan: 06/25 Patient with a history of tobacco use, obstructive abnormality on her PFTs and severe panlobular emphysema on her CT scan all consistent with COPD. Currently patient has shortness of breath, change in her cough and phlegm production and hypoxia consistent with a COPD exacerbation. Her CT scan shows no evidence of pneumonia. She has a positive D-dimer and we will obtain lower extremity Dopplers and a perfusion scan. She did tell me she lost her taste and smell approximately 2 weeks ago and this has improved. She has COVID rapid antigen negative and I will send an RT PCR study. Her influenza swab is negative. She had an ABG of 7.41/39/91 on 3 L nasal cannula and a serum bicarbonate of 26 so there is no evidence of chronic hypercarbic respiratory failure. At this time I will change her Solu-Medrol to 20 mg IV q.6 hours, continue albuterol and ipratropium nebulizers Q 4 standing. Agree with continuation of ceftriaxone and Levaquin while we are waiting her blood cultures to return. Continue supplemental oxygen to maintain saturations 90-94%. 06/26 the patient tells me that she is feeling about the same since admission. She continues with a cough. Patient did state that she slept better. Patient is currently on room air with saturations 95%. White blood cell count decreased to 20.2 she continues on Solu-Medrol 20 q.6, albuterol ipratropium nebulizers q.4 hours, ceftriaxone and Levaquin. Once patient has clinically improved with change to prednisone 40 mg p.o. q.day. There is no evidence of pneumonia on her CT scan and blood cultures are negative. Would discontinue ceftriaxone if cultures remain negative at 48 hours and continue Levaquin for a total of 7 days. This can be changed to p.o.. I have a low clinical suspicion for pulmonary embolism and patient had an intermediate perfusion scan with negative lower extremity Dopplers, will not treat for PE at this time. COVID RT PCR study is negative. Influenza swab is negative. CT scan of the chest demonstrated severe panlobular emphysema and 5 mm nodule in the right upper lobe. No concern for malignancy currently. Patient should have a yearly low-dose CT scan to screen for cancer. 06/29 Patient continues to improve and states that her breathing is better, her dyspnea on exertion is better and his cough is better. She is eating but having trouble sleeping in the hospital. She has no wheezes. Room air saturations are 96%. She tells me she is ready to go home today. I counseled the patient on tobacco cessation for greater than 10 minutes. I told her she will never improved if she continues to smoke. She understands this and is willing to quit. We talked about behavioral modifications to aid in her cessation. We talked about [id number] nicotine gum and patches should she want to try these. I told her she must quit or she will continue to deteriorate. From a pulmonary perspective patient is ready for discharge on these pulmonary medications Prednisone 40 mg PO Q day X 3 last dose 07/02 Levaquin 750 mg PO Q day last dose 07/01 Symbicort 1560/4.5 at 2 puffs BID Muscarinic antagonist that insurance will cover (atrovent 2 puffs Q 6 HR, incruse ellipta 62.5 at 1 puffs Q day, spireva 18 mics at 1 puff Q day or spireva respimat 2.5 mics at 1 puff Q day) Oxygen at rest and with ambulation per home O2 assessment which I have ordered today. Follow up in Pulmonary Clinic in 3-4 weeks. I gave her business card and informed our de icer kit assembler. Discussed with Delaney Martinez Subjective Date/time seen: 06/29/21 09:31 Interval history: 06/25/2021: This is a new pulmonary consult for COPD, pneumonia and lung nodule. 70-year-old woman with a history o
--- NOTE | 2021-06-29 10:06 | PM.DS ---
DS: Admitting Diagnosis Discharge Date 06/29/21 Admitting Diagnosis SOB DS: Discharge Diagnosis Discharge Diagnosis (1) Sepsis: Code(s): A41.9 - Sepsis, unspecified organism Status: Acute Assessment and Plan: Patient is a 70-year-old woman with a history of tobacco abuse, COPD with severe panlobular emphysema, who presents emergency room with increased shortness of breath since April 2021 with associated productive cough, and fevers. She finally was talked into coming to the emergency room by her sister's for further workup and evaluation. Initial vitals showed stable blood pressure 129/68, tachycardic heart rate 109, increased respiratory rate at 28, afebrile, hypoxia 93% on 2 L. Initial labs showed leukocytosis at 24,400, elevated bands and neutrophils. ABG was normal on 3 L via nasal cannula. Normal BMP other than elevated glucose at 210. Negative troponin. BNP minimally elevated at 485. Patient had a negative COVID swab. Negative influenza swab. Elevated D-dimer at 1.63. Patient has a contrast allergy so we did a pulmonary perfusion scan which showed intermediate risk of PE. She had negative venous Dopplers. And her Wells score was low at 1.5 showing low likelihood of PE. Chest x-ray on arrival showed 11 mm nodular density overlying right mid to lower lung and mild right lower lung infiltrate and/atelectasis. High-resolution CT chest without contrast showed no specific evidence of malignancy. Severe emphysema. Scattered areas of mucous plugging in the lungs with a lower lung predominance. Patient was admitted into the hospital with sepsis, pneumonia, IV antibiotics, IV steroids, and a pulmonology consultation. Patient meets criteria for sepsis with tachycardia, tachypnea, hypoxia, leukocytosis with elevated neutrophils and bands, in the setting of bacterial pneumonia versus COVID which we ruled out versus COPD exacerbation Blood cultures were taken and negative to date IV antibiotics with azithromycin and Rocephin for community-acquired pneumonia Today patient has been afebrile, non tachycardic, normal respiratory rate, but still 94% on room air. DuoNeb treatments q.6 She was evaluated by the wheel alignment mechanic this morning he feels comfortable with her being discharged today. He recommend placing the patient on prednisone 40 mg p.o. once daily for 3 more doses, Levaquin 750 mg p.o. daily for 2 more doses, Symbicort, Muscarinic antagonist (placed on Spiriva but put a, to the pharmacy can suffer other 3 options), patient had a home oxygen evaluation which showed she does not need oxygen upon discharge. It is recommended she follow-up the wheel alignment mechanic in 3-4 weeks as an outpatient for further workup and evaluation. She will need to follow-up with her PCP in 1 week. Return to ER warnings given. Patient understands agrees the plan all questions answered. Smoking sensation given. (2) Acute respiratory failure with hypoxemia: Code(s): J96.01 - Acute respiratory failure with hypoxia Status: Acute Assessment and Plan: (3) Community acquired pneumonia: Qualifiers: Laterality: unspecified laterality Qualified Code(s): J18.9 - Pneumonia, unspecified organism Code(s): J18.9 - Pneumonia, unspecified organism Status: Acute Assessment and Plan: (4) COPD (chronic obstructive pulmonary disease): Code(s): J44.9 - Chronic obstructive pulmonary disease, unspecified Status: Acute Assessment and Plan: (5) Elevated glucose: Code(s): R73.09 - Other abnormal glucose Status: Acute Assessment and Plan: Glucose was 210 when she came into the emergency room. Hemoglobin a 1 C is elevated at 6.6%. She is not on any medications for diabetes. glucose c
--- NOTE | 2021-06-29 14:40 | HOMEO2EVAL ---
Evaluation was performed at [facility] Home Oxygen Evaluation RC: Home Oxygen (O2) Evaluation Start: 06/29/21 09:32 Freq: ONCE Status: Active Protocol: RPE Activity Type Activity Date Activity User E-Sign Co-Sign Detail Recorded Client Recorded Date Recorded By Document 06/29/21 14:07 KRM [email or web address] 06/29/21 14:25 KRM Document 06/29/21 14:09 KRM [email or web address] 06/29/21 14:40 KRM Document 06/29/21 14:11 KRM [email or web address] 06/29/21 14:40 KRM 06/29/21 06/29/21 06/29/21 14:07 14:09 14:11 Home O2 Evaluation Test Phase Resting Exercise Exercise Oxygen Delivery Room Air Room Air Room Air Pulse Oximetry (90-100 %) 94 94 93 Pulse Rate (60-100 beats/min) 90 100 98 Activity Tolerance Good Good Ambulation Distance (feet) 100 Ambulation Distance (meters) 30.47 Treatment Charges O2 Evaluation - Inpatient
[2021-06-30 07:20] LABS: Legionella pneumophila Ag Ur Not Detected (Not Detected)
[2021-07-02 00:04] LABS: Pneumococcal Antigen Urine Not Detected (Not Detected)
== END 2021-06-29 14:58 | disposition home or self-care (01) | DRG 195 ==
LOC: ANHED 06-25 02:16 → ANH2MED 06-25 04:41
PROVIDERS: Internal Medicine Pulmonary Disease; Admitting Provider Internal Medicine; Emergency Provider Emergency Medicine; PCP Internal Medicine; Visit Provider Physician Assistant
DX: J18.9 Pneumonia, unspecified organism (principal); J15.9 Unspecified bacterial pneumonia; Z20.822 Contact with and (suspected) exposure to COVID-19; J43.1 Panlobular emphysema; I10 Essential (primary) hypertension; I73.9 Peripheral vascular disease, unspecified; R73.09 Other abnormal glucose; Z87.891 Personal history of nicotine dependence
CPT/HCPCS: 36415; 36600; 71045; 71250; 78580; 80048; 82375; 82805; 82948; 83036; 83050; 83735; 83880; 84484; 85025; 85380; 85610; 87040; 87426; 87449; 87804; 87899; 93005; 93970; 94618; 94640; 94667; 96361; 96365; 96367; 96375; 96376; 97161; 97165; 99285; A9270; A9540; C9803; G0378; J0696; J1650; J1956; J2920; J2930; J7030; J7512; U0003; U0005

== ENCOUNTER 2021-07-27 10:53 | Outpatient (CLI) | payer MEDICARE, SELFPAY ==
--- NOTE | ~2021-07-27 | XR_ITS ---
XR chest 2V DATE: 07/27/2021 11:28 INDICATION: Pneumonia TECHNIQUE: PA and lateral views COMPARISON: 06/25/2021 pulmonary perfusion scan 06/25/2021 CT chest high resolution scan 06/25/2021 portable AP chest FINDINGS: Normal heart size. There is aortic arch calcification. Bilateral hyperinflation and flattening the diaphragm and increased retrosternal airspace, consistent with COPD. No pulmonary infiltrate or consolidation, pleural effusion or pulmonary vascular congestion or pneumo thorax is detected. Diffuse osteopenia. There is minimal dextroscoliosis of the thoracolumbar spine. IMPRESSION: COPD No active cardiac pulmonary disease Osteopenia Reviewed, dictated and finalized at location A. L BONDING WORKER
== END 2021-07-27 10:54 | disposition home or self-care (01) ==
PROVIDERS: PCP Internal Medicine; Visit Provider Physician Assistant
DX: M85.88 Other specified disorders of bone density and structure, other site (principal); J44.9 Chronic obstructive pulmonary disease, unspecified
CPT/HCPCS: 71046

== ENCOUNTER 2022-07-22 12:35 | Outpatient (CLI) | payer MEDICARE, SELFPAY ==
[2022-07-22 13:00] VITALS: PULSE 93; O2SAT 92
[2022-07-22 13:02] VITALS: PULSE 110; O2SAT 87
[2022-07-22 13:03] VITALS: O2SAT 91
[2022-07-22 13:15] VITALS: PULSE 96; O2SAT 92
--- NOTE | 2022-07-22 13:48 | HOMEO2EVAL ---
Evaluation was performed at [facility] Home Oxygen Evaluation RC: Home Oxygen (O2) Evaluation Start: 07/22/22 13:46 Freq: Status: Active Protocol: RPE Activity Type Activity Date Activity User E-sign Co-sign Detail Recorded Client Recorded Date Recorded By Document 07/22/22 13:00 DRE [email or web address] 07/22/22 13:48 DRE Document 07/22/22 13:02 DRE [email or web address] 07/22/22 13:48 DRE Document 07/22/22 13:03 DRE [email or web address] 07/22/22 13:48 DRE Document 07/22/22 13:15 DRE [email or web address] 07/22/22 13:48 DRE 07/22/22 07/22/22 07/22/22 13:00 13:02 13:03 Home O2 Evaluation [Oxygen] -Test Phase Resting Exercise Exercise -Oxygen Delivery Room Air Room Air Nasal Cannula -Oxygen Flow Rate (L/min) 1 [Pulse Oximetry] -Pulse Oximetry (90-100 %) 92 87 L 91 [Pulse Rate] -Pulse Rate (60-100 beats/min) 93 110 H [Comments] -Home Oxygen Evaluation Comments Patient requires 1 L home O2 with activity [Charges] -Treatment Charges O2 Evaluation - Outpatient 07/22/22 13:15 Home O2 Evaluation [Oxygen] -Test Phase Resting -Oxygen Delivery Room Air -Oxygen Flow Rate (L/min) [Pulse Oximetry] -Pulse Oximetry (90-100 %) 92 [Pulse Rate] -Pulse Rate (60-100 beats/min) 96 [Comments] -Home Oxygen Evaluation Comments [Charges] -Treatment Charges
--- NOTE | 2022-07-22 13:48 | PCRCNOTE ---
Faxed to office staff. ptient requesting POC for easier portability
--- NOTE | 2022-07-23 12:33 | WPDPFTINT ---
PFT Procedure Performed PFT Procedure Performed Spirometry with Pre/Post Bronchodilator Plethysmography (Lung Vol) Diffusing Cap (DLCO) Flow Vol Loop PFT Interpretation Lung volumes were measured with the body plethysmography method. Lung volumes are unremarkable. Spirometry showed diminished expiratory flow rates and a diminished FEV1 to FVC ratio 43%, indicative of obstructive airway disease. Following administration of a bronchodilator there was no significant increase in expiratory flow rates. Lung diffusion capacity is moderately reduced at 48% predicted. The flow-volume loop is consistent with obstructive airway disease. In comparison to previous study in 2019 spirometric indices and lung diffusion capacity are little changed. Impression: Moderate obstructive airway disease with no response to bronchodilators on this testing. Moderate reduction in lung diffusion capacity.
== END 2022-07-22 12:36 | disposition home or self-care (01) ==
PROVIDERS: PCP Internal Medicine; Visit Provider Internal Medicine Pulmonary Disease
DX: R06.00 Dyspnea, unspecified (principal); R06.09 Other forms of dyspnea; R94.2 Abnormal results of pulmonary function studies
CPT/HCPCS: 94060; 94618; 94726; 94729

== ENCOUNTER 2022-07-22 12:37 | Outpatient (CLI) | payer MEDICARE, SELFPAY ==
--- NOTE | ~2022-07-22 | CT_ITS ---
EXAMINATION: CT lung screening DATE: 07/22/2022 14:16 INDICATION: Personal history nicotine dependence, current smoker with 49 pack year history TECHNIQUE: Computed tomography (CT) of the chest was performed without intravenous contrast. The dose -length product (DLP) was 82.47 mGy-cm. Automated exposure control and iterative reconstruction techn [employer] were employed. COMPARISON: 06/25/2021 FINDINGS: There is severe emphysema. There are small nodules measuring up to 2 mm of the upper lobes. The lungs are free of acute opacities. No pleural effusion or pneumothorax. No pathologically enlarg ed thoracic lymph nodes are identified. The heart size is normal. Calcified pulmonary nodules and ernesto cified mediastinal lymph nodes are consistent with old granulomatous disease. There is mild thoracic spondylosis. IMPRESSION: 1. Lung-RADS category 2: Benign appearance or behavior. Continue annual screening with noncontrast lo w-dose chest CT in 12 months. Reviewed, dictated and finalized at location L. L BASTER IMPRESSION: 1. Lung-RADS category 2: Benign appearance or behavior. Continue annual screeni ng with noncontrast low-dose chest CT in 12 months.
== END 2022-07-22 12:38 | disposition home or self-care (01) ==
PROVIDERS: PCP Internal Medicine; Visit Provider Nurse Practitioner Family
DX: Z12.2 Encounter for screening for malignant neoplasm of respiratory organs (principal); Z87.891 Personal history of nicotine dependence
CPT/HCPCS: 71271; 94060; 94618; 94726; 94729

== ENCOUNTER 2023-03-31 14:50 | Outpatient (CLI) | payer MEDICARE, SELFPAY ==
--- NOTE | ~2023-03-31 | XR_ITS ---
XR chest 2V 03/31/2023 15:05 Indication: Dyspnea. Cough for 3 weeks. Procedure: 2 view chest Comparison: Comparison to multiple prior studies sequentially, with oldest reviewed study dated 10/2021. Findings: Heart size normal. No focal air space disease, pulmonary edema, pleural effusion or suspect ed pneumothorax. The lungs are hyperinflated which is consistent with, but not diagnostic of chronic obstructive pulmonary disease. Impression: 1: No acute cardiopulmonary disease. Reviewed, dictated and finalized at location A. Impression: 1: No acute cardiopulmonary disease.
== END 2023-03-31 14:51 | disposition home or self-care (01) ==
PROVIDERS: PCP Internal Medicine; Visit Provider Nurse Practitioner Family
DX: R06.00 Dyspnea, unspecified (principal); R05.9 Cough, unspecified
CPT/HCPCS: 71046

== ENCOUNTER 2024-05-03 14:32 | Outpatient (CLI) | payer MEDICARE, SELFPAY ==
--- NOTE | ~2024-05-03 | XR_ITS ---
Clinical Indication: Shortness of breath PA and lateral views of the chest: Comparison: 03/31/2023 Findings: The lungs are clear, without evidence of focal consolidation or pleural effusion. Cardiome diastinal silhouette is within normal limits. Bones and soft tissues are unremarkable. Impression: Normal chest. Reviewed, dictated and finalized at location . [employer] HE[employer] MANAGER Impression: Normal chest.
== END 2024-05-03 14:33 | disposition home or self-care (01) ==
PROVIDERS: PCP Internal Medicine; Visit Provider Internal Medicine
DX: R05.3 Chronic cough (principal)
CPT/HCPCS: 71046